=== PATIENT | male | born 1955 | race Caucasian/White ===

== ENCOUNTER 2016-11-20 16:04 | Inpatient (IN) | payer OTHER ==
[~2016-11-20] VITALS: Ht 177.8 cm; Wt 62.7 kg
[~2016-11-20 16:04] MED LIST: "\\\"MUSCLE RELAXER\\\""; AMLODIPINE BESY10 MG PO; CITALOPRAM HBR40 MG PO; GABAPENTIN300 MG PO; LISINOPRIL10 MG PO; METOPROLOL TART25 MG PO; NITROSTAT0.4 MG SL; TIZANIDINE HCL4 M1 PO; TRAMADOL; TRAMADOL HCL50 MG PO; [UNRECOGNIZED DRUG - REMARK]
[2016-11-20 17:08] LABS: EOSINOPHIL (%) 0.2 % (0-5); HEMATOCRIT 41.7 % (38.0-50.0); IMMATURE GRANULOCYTE (%) 0.3 % (0.0-0.7); IMMATURE GRANULOCYTE COUNT 0.3 K/uL; LYMPHOCYTE COUNT 1.5 K/uL (1.0-2.8); MCHC 35.5 G/DL (30.0-36.0); MCV 87.2 FL (86-99); MEAN PLAT.VOLUME 8.5 uM^3 (9.0-12.4); MONOCYTE (%) 5.8 % (3-12); MONOCYTE COUNT 0.5 K/uL (0-0.8); NEUTROPHIL (%) 76.4 % (45-76); NEUTROPHIL COUNT 6.6 K/uL (1.8-6.4); PLATELET COUNT 225 K/uL (156-360); RBC DIS.WIDTH-CV 13.1 % (11.8-14.6); RED BLOOD COUNT 4.78 M/uL (4.00-5.50); WHITE BLOOD COUNT 8.6 K/uL (4.1-10.2)
[2016-11-20 17:29] LABS: CHLORIDE 103 mEq/L (99-109); POTASSIUM 4.2 mEq/L (3.7-5.4); SODIUM 136 mEq/L (136-147)
[2016-11-20 17:31] LABS: GLUCOSE 117 mg/dL (70-99)
[2016-11-20 17:32] LABS: ANION GAP 11 MEQ/L (2-14)
[2016-11-20 17:33] LABS: TOTAL BILIRUBIN 0.5 mg/dL (0.0-1.0)
[2016-11-20 17:34] LABS: ALKALINE PHOSPHATASE 80 IU/L (3-129); SERUM ETHYL ALCOHOL < 10 mg/dL
[2016-11-20 17:35] LABS: GFR ESTIMATE (CALCULATED) > 59 mL/min/
[2016-11-20 17:36] LABS: UREA NITROGEN (BUN) 11 mg/dL (9-23)
[2016-11-20 17:38] LABS: LIPASE 12 U/L (1.0-51.0)
[2016-11-20 20:45] LABS: ADD MIUA? YES; BILIRUBIN NEGATIVE; BLOOD SMALL; COLOR YELLOW ((YELLOW)); GLUCOSE (STRIP) NEGATIVE; KETONES 20; LEUKOCYTES NEGATIVE; NITRITE NEGATIVE; PROTEIN (STRIP) NEGATIVE; UROBILINOGEN 0.2 MG/DL (0.2-1.0)
[2016-11-20 20:49] LABS: BACTERIA RARE /HPF; EPITHELIAL CELLS RARE /HPF; MUCUS TRACE /LPF; RED BLOOD CELLS 0-5 /HPF (0-5); UCUL ADDED? NO; WHITE BLOOD CELLS 0-5 /HPF (0-5)
[2016-11-20 21:03] LABS: COCAINE NEGATIVE (150 ng/mL); PHENCYCLIDINE NEGATIVE (25 ng/mL); THC CANNABINOIDS PRESUMPTIVE POSITIVE (50 ng/mL)
[2016-11-20 21:04] LABS: ADD MEDTOX COMMENT Y; AMPHETAMINE NEGATIVE (500 ng/mL); BARBITURATES NEGATIVE (200 ng/mL); BENZODIAZEPINES NEGATIVE (150 ng/mL); INTERNAL CONTROLS VALID? YES; METHADONE NEGATIVE (200 ng/mL); METHAMPHETAMINE NEGATIVE (500 ng/mL); OPIATES (MORPHINE) NEGATIVE (100 ng/mL); OXYCODONE NEGATIVE (100 ng/mL); PROPOXYPHENE NEGATIVE (300 ng/mL); TRICYCLIC ANTIDEPRESSANTS NEGATIVE (300 ng/mL)
[2016-11-20 21:16] VITALS: BP 185/88
[2016-11-20 21:19] VITALS: BP 185/88
[2016-11-21 07:56] VITALS: BP 134/67
[2016-11-21 11:36] VITALS: BP 127/76
[2016-11-21 15:56] VITALS: BP 152/80
[2016-11-22 08:01] VITALS: BP 118/74
[2016-11-22 16:00] VITALS: BP 120/59
[2016-11-22 20:56] VITALS: BP 125/78
[2016-11-23 07:56] VITALS: BP 100/62
[2016-11-23] MEDS ORDERED: CLONAZEPAM0.5 MG PO (09:38)
== END 2016-11-23 11:08 | disposition home or self-care (01) | DRG 885 ==
LOC: EME → EDBD 16:04 → EME 16:04 → 1WEST 19:32 → EDOF 19:32 → 1WEST 21:04
PROVIDERS: Emergency Medicine
DX: F33.2 Major depressive disorder, recurrent severe without psychotic features (principal); R45.851 Suicidal ideations; Z68.1 Body mass index [BMI] 19.9 or less, adult; E87.2 Acidosis; G47.00 Insomnia, unspecified; F12.90 Cannabis use, unspecified, uncomplicated; E86.0 Dehydration; I10 Essential (primary) hypertension; F17.210 Nicotine dependence, cigarettes, uncomplicated; F41.9 Anxiety disorder, unspecified; R63.0 Anorexia; Z60.2 Problems related to living alone; Z91.010 Allergy to peanuts
CPT/HCPCS: 71010; 80053; 81003; 83605; 83690; 84999; 85025; 90837; 97150 GO; 97165 GO; 99281; 99285; G0480; J7030

== ENCOUNTER → 2017-11-29 | Outpatient (CLI) | payer OTHER ==
[~2017-11-29] MED LIST changes: +CLONAZEPAM0.5 MG PO
== END | disposition home or self-care (01) ==
LOC: EKG 12:43
DX: I70.0 Atherosclerosis of aorta (principal); I05.8 Other rheumatic mitral valve diseases; I05.1 Rheumatic mitral insufficiency; I07.1 Rheumatic tricuspid insufficiency; R94.31 Abnormal electrocardiogram [ECG] [EKG]; I10 Essential (primary) hypertension
CPT/HCPCS: 93306

== ENCOUNTER 2018-03-13 13:09 | Inpatient (IN) | payer OTHER ==
[~2018-03-13] VITALS: Ht 177.8 cm; Wt 56.3 kg
[2018-03-13 15:00] LABS: APPEARANCE CLEAR ((CLEAR)); BILIRUBIN NEGATIVE; BLOOD NEGATIVE; COLOR YELLOW ((YELLOW)); GLUCOSE (STRIP) NEGATIVE; KETONES 20; LEUKOCYTES NEGATIVE; NITRITE NEGATIVE; PROTEIN (STRIP) 30; SPECIFIC GRAVITY 1.017 (1.000-1.030); UCUL ADDED? NO
[2018-03-13 15:07] LABS: BASOPHIL (%) 0.1 % (0-1); EOSINOPHIL (%) 0 % (0-5); HEMATOCRIT 41.6 % (38.0-50.0); HEMOGLOBIN 14.8 G/DL (12.5-16.6); IMMATURE GRANULOCYTE (%) 0.6 % (0.0-0.7); LYMPHOCYTE (%) 17.8 % (15-42); LYMPHOCYTE COUNT 1.2 K/uL (1.0-2.8); MCH 31.6 PG (29.0-34.0); MCHC 35.6 G/DL (30.0-36.0); MCV 88.7 FL (86-99); MONOCYTE (%) 9.7 % (3-12); MONOCYTE COUNT 0.7 K/uL (0-0.8); NEUTROPHIL (%) 71.8 % (45-76); NEUTROPHIL COUNT 4.9 K/uL (1.8-6.4); PLATELET COUNT 186 K/uL (156-360); RBC DIS.WIDTH-CV 12.7 % (11.8-14.6); RBC DIS.WIDTH-SD 41.2 % (39-53); RED BLOOD COUNT 4.69 M/uL (4.00-5.50); WHITE BLOOD COUNT 6.8 K/uL (4.1-10.2)
[2018-03-13 15:23] LABS: ALBUMIN 4.4 g/dL (3.2-4.8); CHLORIDE 98 mEq/L (99-109); POTASSIUM 3.9 mEq/L (3.7-5.4); SODIUM 130 mEq/L (136-147)
[2018-03-13 15:26] LABS: GLUCOSE 106 mg/dL (70-99); TOTAL PROTEIN 6.9 g/dL (6.4-8.3)
[2018-03-13 15:27] LABS: TOTAL BILIRUBIN 0.5 mg/dL (0.0-1.0)
[2018-03-13 15:28] LABS: SERUM ETHYL ALCOHOL < 10 mg/dL
[2018-03-13 15:29] LABS: CREATININE 0.9 mg/dL (0.6-1.3); GFR ESTIMATE (CALCULATED) > 59 mL/min/ (58.99-99999)
[2018-03-13 15:30] LABS: ALKALINE PHOSPHATASE 69 IU/L (3-129)
[2018-03-13 15:31] LABS: AST (GOT) 19 IU/L (2-34); UREA NITROGEN (BUN) 11 mg/dL (9-23)
[2018-03-13 15:33] LABS: ACETAMINOPHEN (TYLENOL) < 10 mcg/mL (10-30); ALT (GPT) 16 IU/L (3-49); SALICYLATE < 5.0 MG/DL (15-30)
[2018-03-13 17:14] LABS: AMPHETAMINE NEGATIVE (500 ng/mL); BARBITURATES NEGATIVE (200 ng/mL); BENZODIAZEPINES NEGATIVE (150 ng/mL); BUPRENORPHINE NEGATIVE (10 ng/mL); COCAINE NEGATIVE (150 ng/mL); METHADONE NEGATIVE (200 ng/mL); METHAMPHETAMINE NEGATIVE (500 ng/mL); OPIATES (MORPHINE) NEGATIVE (100 ng/mL); OXYCODONE NEGATIVE (100 ng/mL); PHENCYCLIDINE NEGATIVE (25 ng/mL); PROPOXYPHENE NEGATIVE (300 ng/mL); THC CANNABINOIDS PRESUMPTIVE POSITIVE (50 ng/mL); TRICYCLIC ANTIDEPRESSANTS NEGATIVE (300 ng/mL)
[2018-03-13] MEDS ORDERED: TRAZODONE HCL100 MG PO (17:31)
[2018-03-13 17:32] VITALS: BP 188/99
[2018-03-13 17:46] VITALS: BP 188/99
[2018-03-14 07:52] VITALS: BP 109/68
[2018-03-14 16:22] VITALS: BP 113/69
[2018-03-15 08:31] VITALS: BP 105/64
[2018-03-15 15:56] VITALS: BP 133/63
[2018-03-16 08:19] VITALS: BP 99/68
[2018-03-16 16:49] VITALS: BP 111/67
[2018-03-17 07:47] VITALS: BP 112/68
[2018-03-17] MEDS ORDERED: CITALOPRAM HBR20 MG PO (09:31)
[2018-03-17] MEDS ORDERED: ARIPIPRAZOLE2 MG PO (09:31)
== END 2018-03-17 13:21 | disposition home or self-care (01) | DRG 885 ==
LOC: EME 13:09 → 1WEST 15:15 → EDOF 15:15 → 1WEST 15:15 → ENRESERV 17:09 → 1WEST 17:19
PROVIDERS: Emergency Medicine
DX: F33.2 Major depressive disorder, recurrent severe without psychotic features (principal); G47.00 Insomnia, unspecified; R45.851 Suicidal ideations; I10 Essential (primary) hypertension; F12.90 Cannabis use, unspecified, uncomplicated; F17.200 Nicotine dependence, unspecified, uncomplicated
CPT/HCPCS: 80053; 81003; 84999; 85025; 90837; 97150 GO; 97166 GO; 99281; 99285; G0480